=== PATIENT | male | born 1960 ===

== ENCOUNTER 2024-12-07 06:28 | Day surgery (SDC) | payer OTHER, SELFPAY ==
[2024-11-30 09:04] LABS: Hematocrit 43.4 % (39.0-52.0); Hemoglobin 14.4 g/dL (13.0-18.0); Mean Corp Hgb Conc. 33.2 g/dL (33.0-37.0); Mean Corpuscular Hgb 28.1 pg (27.0-31.0); Mean Corpuscular Volume 84.6 fL (80.0-94.0); Mean Platelet Volume 9.1 fL (7.4-10.4); Platelet Count 307 10^3/uL (130-400); Red Blood Cell Count 5.13 10^6/uL (4.70-6.10); Red Cell Dist. Width 13.6 % (11.5-14.5); White Blood Cell Count 6.2 10^3/uL (4.8-10.8)
[2024-11-30 09:29] LABS: Blood Urea Nitrogen 20 mg/dl (9-20); Calcium 9.4 mg/dl (8.4-10.2); Carbon Dioxide 26 mmol/L (22-30); Chloride 105 mmol/L (98-107); Glucose 106 mg/dl (70-99); Potassium 4.2 mmol/L (3.5-5.1); Sodium 139 mmol/L (135-145); eGFR > 60.00
[2024-11-30 14:10] VITALS: BMI 39.5
[2024-12-07] VITALS (11 sets, daily range): BP systolic 132–168; BP diastolic 83–107; BMI 39.5
[2024-12-07] MEDS: NORMOSOL-R/PLASMALYTE-A 1000 IV ×3 (09:22→21:54)
[2024-12-07] MEDS: TYLENOL 1000 MG PO (09:22)
--- NOTE | 2024-12-07 09:44 | W.PN.SURGUPD ---
Surgical Update
Surgical Update
Discussion with patient preoperatively and repeat examination. Patient reports that he has had a prior open LEFT inguinal hernia repair with possible mesh decades ago. He states that he has always had some mild discomfort on the LEFT side.
Reviewing CT scan imaging demonstrates a fat-containing indirect/cord lipoma on the RIGHT with a subtle possible inguinal hernia on the LEFT. Plan for a robotic ventral hernia repair with mesh. Will examine bilateral groins and assess need for
repair intraoperatively. Plan for an open RIGHT possible LEFT inguinal hernia repair with mesh. The procedure itself, as well as the risks, benefits, and alternatives has been reviewed and discussed with the patient. He is in agreement with the
above management strategy. All questions answered.
--- NOTE | 2024-12-07 13:58 | W.IMMPOSTOP ---
Surgical Immed Post Op Note
-
Primary Surgeon: Suzanne
Assisting Surgeon: CARON Cr
Pre-op Diagnosis: Ventral incisional and RIGHT possible LEFT inguinal hernias
Post-op Diagnosis: Ventral incisional and RIGHT inguinal hernias
Procedure Performed: Robotic ventral incisional hernia repair with mesh and open RIGHT inguinal hernia repair with mesh
Anesthesia Type: General
Specimen / Cultures: None
Estimated Blood Loss: 11 cc
Complications: None
Operative Findings:
1. 2 cm incisional hernia in LEFT lower quadrant, containing loop of colon, repair with modified IPOM Ventralight 11 cm round mesh (85% mesh coverage with lateral peritoneal pocket)
2. Large cord lipoma (excised), Joseph repair with Bard reg weight flat mesh
[2024-12-07] MEDS: DILAUDID 0.5 MG IV ×2 (14:57→15:59)
[2024-12-07] MEDS: TYLENOL 650 MG PO ×2 (15:59→19:55)
[2024-12-07] MEDS: TORADOL 10 MG IV (19:55)
[2024-12-08] MEDS: TYLENOL PO ×2 (00:41→04:00)
[2024-12-08 03:15] VITALS: BP 117/77
[2024-12-08 07:25] VITALS: BP 158/97
[2024-12-08] MEDS: DILAUDID 0.5 MG IV (07:31)
[2024-12-08] MEDS: TYLENOL 650 MG PO ×4 (07:57→19:49)
[2024-12-08] MEDS: COZAAR 100 MG PO (07:57)
[2024-12-08] MEDS: PROTONIX 40 MG PO (07:57)
[2024-12-08] MEDS: NORMOSOL-R/PLASMALYTE-A 1000 IV (07:57)
[2024-12-08] MEDS: MIRALAX 17 GRAMS PO (07:58)
[2024-12-08] MEDS: ORETIC 25 MG PO (07:58)
[2024-12-08] MEDS: ROXICODONE 5 MG PO ×3 (10:00→19:49)
[2024-12-08] MEDS: TORADOL 10 MG IV ×2 (10:00→21:26)
--- NOTE | 2024-12-08 10:19 | W.PN.GS2 ---
Addendum entered and electronically signed by Manoj Goyal MD 12/08/24 15:07:
I saw and examined the patient.
The PA's note was reviewed and I agree with the note.
Comment:
Seen earlier with PA.
Pain issues. Otherwise ok.
AFVSS.
Abdominal incisions looked good.
Discharge today vs tomorrow.
Original Note:
Today's Communication / Plan
-
Pain control
dispo planning
Assessment / Plan
-
64 yo male presenting for hernia repair now POD #1 robotic ventral incisional hernia repair with mesh and open right inguinal hernia repair with mesh
AFVSS
Still requiring IV analgesics at times, but pain improving
--Regular diet
--Bowel regimen
--C/w home meds
--Multimodal analgesics/ice packs
--D/C IVF
--OOB/Ambulate. ABD binder with activity
--SCDS while in bed
Tentative d/c home later today vs tomorrow once pain well controlled
Subjective Data
-
Date of Service: December 08, 2024
Patient seen and examined at bedside. Denies n/v. Tolerating diet. Reports pain with movement, has been cautious about getting OOB. No fevers/chills. Passing flatus. Voiding without difficulty.
Objective Data
-
Intake and Output
12/07/24 12/08/24 12/09/24
06:59 06:59 06:59
Intake Total 1640 / 1640
Balance 1640 / 1640
Intake:
Oral fluids 240 / 240
IV fluids (Total) 1400 / 1400
Normosol 200 / 200
Other:
How many times incontinent 3
SMALL amount urine
Vital Signs
Temp Pulse Resp BP Pulse Ox
98.1 F 84 18 158/97 94
12/08/24 07:25 12/08/24 07:58 12/08/24 07:25 12/08/24 07:58 12/08/24 07:25
Lab Results
11/30/24 06:52
11/30/24 06:52
Calcium 9.4 mg/dl (8.4-10.2) 11/30/24 06:52
Physical Exam
-
NAD
ABD soft, obese, ND, expected tenderness
Incisions with intact glue to abd, intact dressing to groin
[2024-12-08] MEDS: COLACE 100 MG PO ×2 (11:04→19:49)
[2024-12-08 11:15] VITALS: BP 101/71
--- NOTE | 2024-12-08 14:22 | CM ---
Initial assessment completed with patient with girlfriend in room. Patient lives alone in a split level plus basement home with 6 steps to enter and 6 steps to upper level. B/B on 2nd floor. [employer] was independent in ADL's, drove, works. No DME or
services in the home. No service. Girlfriend, neighbors and family and friends are support system. Does have HC-POA. PCP is Dr. Atul Gardner and Pharmacy is [facility] on [facility] in [place]. Discharge POC: No needs. Patient declined HH
services.
[2024-12-08 15:26] VITALS: BP 128/73
--- NOTE | 2024-12-08 16:00 | PTCARENOTE ---
At 16:00 took over the care of patient as dayshift RN Gina was pulled to ICU; patient resting comfortably, VSS, abdominal binder in place over lap sites/surgical adhesive, (R) groin gauze/tape c/d/i; will give detailed report to nightshift RN
@18:45.
[2024-12-08] MEDS: LOVENOX 40 MG SC (17:30)
[2024-12-08 23:03] VITALS: BP 120/71
[2024-12-09] MEDS: TYLENOL PO ×2 (00:39→05:11)
[2024-12-09] MEDS: ROXICODONE 5 MG PO ×3 (02:01→10:46)
[2024-12-09 07:15] VITALS: BP 165/99
[2024-12-09] MEDS: TYLENOL 650 MG PO (08:23)
[2024-12-09] MEDS: ORETIC 25 MG PO (08:23)
[2024-12-09] MEDS: COZAAR 100 MG PO (08:23)
[2024-12-09] MEDS: COLACE 100 MG PO (08:24)
[2024-12-09] MEDS: MIRALAX 17 GRAMS PO (08:24)
[2024-12-09] MEDS: PROTONIX 40 MG PO (08:24)
--- NOTE | 2024-12-09 10:26 | W.PN.GS2 ---
Today's Communication / Plan
-
dispo planning
Assessment / Plan
-
64 yo male presenting for hernia repair now POD #2 robotic ventral incisional hernia repair with mesh and open right inguinal hernia repair with mesh
AFVSS, HTN noted
Post op pain improving, manageable
--Regular diet
--Bowel regimen
--C/w home meds
--Multimodal analgesics/ice packs
--OOB/Ambulate. ABD binder with activity
--SCDS while in bed
d/c later today
Subjective Data
-
Date of Service: December 09, 2024
Pt seen and examined at bedside with Dr. Goyal. Pain persists but moving around better today. Tolerating diet, passing flatus.
Objective Data
-
Intake and Output
12/08/24 12/09/24 12/10/24
06:59 06:59 06:59
Intake Total 1640 / 1640 360 / 360
Balance 1640 / 1640 360 / 360
Intake:
Oral fluids 240 / 240 360 / 360
IV fluids (Total) 1400 / 1400
Normosol 200 / 200
Other:
Number of approximated MODERATE 3
amounts of urine
How many times incontinent 3 1
SMALL amount urine
Vital Signs
Temp Pulse Resp BP Pulse Ox
98.9 F 90 18 165/99 95
12/09/24 07:15 12/09/24 07:15 12/09/24 07:15 12/09/24 07:15 12/09/24 07:15
Lab Results
11/30/24 06:52
11/30/24 06:52
Calcium 9.4 mg/dl (8.4-10.2) 11/30/24 06:52
Physical Exam
-
NAD
ABD soft, obese, ND, expected tenderness
Incisions with intact glue to abd, intact dressing to groin
--- NOTE | 2024-12-09 10:32 | W.DS.TRANS ---
DC Summary - Occ Ther
-
Discharge Instructions:
Discharge Diagnosis/Procedures Robotic ventral incisional hernia repair with
mesh and open RIGHT inguinal hernia repair with
mesh
Diet Regular
Activity No strenuous activity
Additional Activity No heavy lifting (>20 lbs) or strenuous
activities for 4 - 6 weeks postoperatively
Driving Restrictions No driving if too sore or taking narcotics
Bathing Restrictions OK to Shower
Wound Care Keep incisions clean and dry. Glue will flake
off in 2 to 3 weeks. Steri-Strips will flake
off in 2 to 3 weeks. Okay to remove outer gauze
and tape dressing overlying the groin 48 hours
postoperatively. Replace as needed for any
drainage. Use ice to the groin to reduce any
bruising or swelling.
Instructions:
Stand-Alone Forms:
Changes to Home Medications: No
Discharge Medications:
DC Medications w/original date entered in [employer]
ibuprofen 125 mg-acetaminophen 250 mg tablet (Advil Dual Action) 2 tab PO Q8H PRN PAIN 11/30/24
losartan 100 mg-hydrochlorothiazide 25 mg tablet 1 tab PO DAILY 11/30/24
omeprazole 20 mg tablet,delayed release 20 mg PO DAILY 11/30/24
polyethylene glycol 3350 17 gram oral powder packet (Miralax) 17 g PO DAILY 11/30/24
psyllium husk 5 cap PO DAILY 11/30/24
docusate sodium 100 mg capsule 100 mg PO BID #60 caps 12/09/24
oxycodone 5 mg tablet 5 mg PO Q4HPRN PRN breakthrough/severe pain #20 tabs 12/09/24
Home Medication Changes
Pending Results: No
[2024-12-09 10:57] VITALS: BP 149/97
--- NOTE | 2024-12-09 13:02 | CM ---
Patient has been medically cleared for discharge to home with no additional skilled services. Patient declined HH RN. Patient arranged for transport home.
== END 2024-12-09 11:30 | disposition home or self-care (01) ==
LOC: SDS 06:28
PROVIDERS: ATTENDING PHYSICIAN Surgery; FAMILY PHYSICIAN Family Medicine
DX: K43.2 Incisional hernia without obstruction or gangrene (principal); K40.90 Unilateral inguinal hernia, without obstruction or gangrene, not specified as recurrent
CPT/HCPCS: 49591; 49505; 36415; 80048; 85027; 93005; C1781

== ENCOUNTER → 2025-03-15 07:36 | Outpatient (REF) | payer OTHER, SELFPAY | LOC: MRI 3T 07:36 | PROVIDERS: ATTENDING PHYSICIAN Student in an Organized Health Care Education/Training Program; FAMILY PHYSICIAN Family Medicine | DX: K76.9 Liver disease, unspecified (principal) | CPT/HCPCS: 70200; 74183; A9575 ==

== ENCOUNTER 2025-04-12 06:24 | Day surgery (SDC) | payer OTHER, SELFPAY | END 2025-04-12 15:26 | disposition home or self-care (01) | LOC: GI 06:24 | PROVIDERS: ATTENDING PHYSICIAN Student in an Organized Health Care Education/Training Program | DX: Z12.11 Encounter for screening for malignant neoplasm of colon (principal); K59.00 Constipation, unspecified; Q43.8 Other specified congenital malformations of intestine; D12.4 Benign neoplasm of descending colon; D12.1 Benign neoplasm of appendix; D12.2 Benign neoplasm of ascending colon; D12.3 Benign neoplasm of transverse colon; K63.5 Polyp of colon; Z86.0100 Personal history of colon polyps, unspecified | CPT/HCPCS: 45385; 45380; 88305 ==

== ENCOUNTER → 2025-07-15 12:55 | Outpatient (REF) | payer OTHER, SELFPAY | LOC: HWRAD 12:55 | PROVIDERS: ATTENDING PHYSICIAN Student in an Organized Health Care Education/Training Program; FAMILY PHYSICIAN Family Medicine | DX: K59.04 Chronic idiopathic constipation (principal) | CPT/HCPCS: 74019 ==